=== PATIENT | male | born 1965 | race Caucasian/White ===

== ENCOUNTER 2021-03-02 20:13 | Emergency (ER) | payer MEDICAID, OTHER ==
[~2021-03-02] VITALS: Ht 175.3 cm; Wt 158.5 kg
[2021-03-02] MEDS ORDERED: LEVO50TA5 (20:36)
[2021-03-02] MEDS ORDERED: ASPI-1 (20:36)
[2021-03-02] MEDS ORDERED: ATOR80TA59 (20:36)
[2021-03-02] MEDS ORDERED: D3 S1CAP3 (20:36)
[2021-03-02] MEDS ORDERED: METO1TAB7 (20:36)
[2021-03-02] MEDS ORDERED: ALBU8.5H (20:36)
[2021-03-02] MEDS ORDERED: ENTR1TAB7 (20:36)
[2021-03-02] MEDS ORDERED: NITR0.4S14 (20:36)
[2021-03-02] MEDS ORDERED: CLOP75TA2 (20:36)
[2021-03-02] MEDS ORDERED: BUME2TAB3 (20:36)
[2021-03-02] MEDS ORDERED: CETI-24 (20:36)
[2021-03-02 20:46] LABS: BASO # 0.1 10^3/uL (0.0-0.2); BASO % 0.5 % (0.0-1.0); EOS # 0.4 10^3/uL (0.0-0.5); EOS % 4.1 % (0.0-3.0); HEMATOCRIT 40.5 % (42.0-52.0); HEMOGLOBIN 13.3 g/dl (13.5-17.5); LYMPH # 1.7 10^3/uL (1.5-5.0); MEAN CORPUSCULAR HEMOGLOBIN 29.6 pg (27.0-33.0); MEAN CORPUSCULAR HGB CONC 32.8 g/dl (32.0-36.5); MONO # 0.7 10^3/uL (0.0-0.8); MONO % 7.9 % (2.0-8.0); NEUTROPHILS # 6.4 10^3/uL (1.5-8.5); NEUTROPHILS % 69.3 % (36.0-66.0); PLATELET COUNT, AUTOMATED 240 10^3/uL (150-450); WHITE BLOOD COUNT 9.2 10^3/uL (4.0-10.0)
[2021-03-02 20:57] LABS: INR 0.94; PROTHROMBIN TIME 12.8 SECONDS (12.5-14.3)
[2021-03-02 20:58] LABS: PARTIAL THROMBOPLASTIN TIME 26.9 SECONDS (24.2-38.5)
[2021-03-02 21:15] LABS: BLOOD UREA NITROGEN 12 MG/DL (7-18); CALCIUM LEVEL 9.1 MG/DL (8.5-10.1); CARBON DIOXIDE LEVEL 32 MEQ/L (21-32); CHLORIDE LEVEL 97 MEQ/L (98-107); CREATININE FOR GFR 1.19 MG/DL (0.70-1.30); GLOMERULAR FILTRATION RATE > 60.0 (>56); GLUCOSE, FASTING 184 MG/DL (70-100); POTASSIUM SERUM 3.5 MEQ/L (3.5-5.1); SODIUM LEVEL 135 MEQ/L (136-145)
[2021-03-02] MEDS ORDERED: ISOVUE-370 76% 100ML VIAL As Ordered ONE (22:39)
--- NOTE | 2021-03-02 23:53 | REPVR ---
PROCEDURE INFORMATION: Exam: CTA Chest With Contrast Exam date and time: 03/02/2021 11:00 PM Age: 55 years old Clinical indication: Shortness of breath; Additional info: HX dvts, R/O left pe TECHNIQUE: Imaging protocol: Computed tomographic angiography of the chest with contrast. 3D rendering (Not supervised by radiologist): MIP and/or 3D reconstructed images were created by the technologist. Radiation optimization: All CT scans at this facility use at least one of these dose optimization techniques: automated exposure control; mA and/or kV adjustment per patient size (includes targeted exams where dose is matched to clinical indication); or iterative reconstruction. Contrast material: ISOVUE 370; Contrast volume: 75 ml; Contrast route: INTRAVENOUS (IV); COMPARISON: CR PORTABLE CHEST X-RAY 03/02/2021 8:56 PM FINDINGS: PULMONARY ARTERIES: Diameter of the main pulmonary trunk at 3.1 cm is borderline. Enhancement within the pulmonary arteries is preserved bilaterally through the distal segmental levels without acute appearing occlusive pulmonary emboli. Intensity and homogeneity of contrast bolus opacification within some branches beyond the distal segmental levels is suboptimal to evaluate for, or reliably exclude, smaller distal PE. HEART AND AORTA: There is mild cardiac enlargement with slight prominence of left-sided chambers. Pacemaker leads are seen. No pericardial effusion. Coronary arterial calcifications are noted. The ascending thoracic aorta demonstrates borderline fusiform aneurysmal dilation at 4.1 cm. No thoracic aortic dissection. Mild appearing atherosclerotic disease is seen within the thoracic aorta. Upper abdominal visceral arterial atherosclerosis is noted. MEDIASTINUM: Midline mediastinal structures are not displaced by mass effect. No mediastinal gas. The visualized thyroid gland is within normal limits. Prominent mediastinal fat. No mediastinal hematoma. Trace amount of fluid seen within the pericardial recesses. Multiple rounded pre-vascular lymph nodes are noted up to 9 mm in short axis. Multiple ovoid paratracheal lymph nodes are seen up to 10 mm in short axis. Multiple rounded AP window lymph nodes are seen, measuring up to 8 mm in short axis. Subcarinal and azygoesophageal recess lymph nodes up to 9 mm in short axis noted. Slightly prominent bilateral hilar lymph nodes are noted, measuring up to 7 mm in short axis. The significance of these lymph nodes is uncertain. Clinical correlation is advised. If the patient has a history of malignancy or if there is elevated suspicion due to risk factors, consider further characterization by PET. If there is no elevated risk, consider follow-up CT at 3-6 months to re-evaluate, sooner should symptoms worsen. No periesophageal inflammatory changes seen. No hiatal hernia. LUNGS: The lungs are symmetric in expansion. There is no consolidation, pneumothorax or pleural effusion. Mild bibasal and dependent subpleural reticular and ground-glass opacities noted likely secondary to atelectasis and/or parenchymal scarring. There is an 8 mm noncalcified ovoid nodule along the anteroinferior aspect of the left lower lobe with some adjacent atelectasis and/or parenchymal scarring (image 140, series 401). 6 mm nodule within the left lower lobe along the major fissure. 3 mm noncalcified subpleural nodule within the lingula. The significance of these nodules is uncertain. Neoplasia cannot be excluded as a cause. Clinical correlation with risk factors is advised. If the patient does not have a known history of malignancy, for patients at low risk (minimal or absent history of smoking and of other known risk factors), recommend CT Chest at 3-6 months, then consider CT Chest at 18-24 months. For patients at high risk (history of smoking or of other known risk factors), recommend CT Chest at 3-6 months, then CT Chest at 18-24 months. (Reference: Robert). No bronchiectasis or peribronchial thickening. UPPER ABDOMEN: No free air or free fluid within the visualized upper most abdomen. MSK AND BODY WALL: A left anterior chest wall pacemaker is noted. Mild degenerative changes of the spine and bony thorax. No acute fracture seen. IMPRESSION: No evidence of acute pulmonary embolus through the distal segmental levels. Cardiac enlargement. Indeterminate pulmonary nodules. Borderline lymph nodes are noted. The significance of these findings is uncertain. Clinical correlation is advised. Findings and recommendations discussed above in detail. Other incidental findings discussed above. Electronically signed by: Kiko Osborn On 03/02/2021 23:53:06 PM
[2021-03-03 00:48] VITALS: BP 157/79
--- NOTE | 2021-03-03 07:45 | ECGEPIP ---
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
--- NOTE | 2021-03-03 07:47 | ECGEPIP ---
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
--- NOTE | 2021-03-04 16:57 | REP ---
INDICATION: CHEST PAIN. COMPARISON: None. TECHNIQUE: Single portable AP view of the chest was performed. FINDINGS: There is cardiomegaly. There is mild vascular congestion. No infiltrate is seen. The mediastinal silhouette is unremarkable. Left pacemaker is noted. IMPRESSION: Cardiomegaly with mild vascular congestion. No focal infiltrate. A preliminary report was provided by [facility] at the time of the exam. <Electronically signed by Emre Gaviria > 03/04/21 [id number]
--- NOTE | 2021-03-05 10:37 | ED PDOC ---
Post-Departure Follow-Up cta chest faxed to dr barker for fu Toni Hardwick MD March 05, 2021 10:37
== END 2021-03-03 01:05 | disposition home or self-care (01) ==
LOC: M ED 20:13
DX: R91.8 Other nonspecific abnormal finding of lung field (principal); R59.0 Localized enlarged lymph nodes; R07.89 Other chest pain; Z95.0 Presence of cardiac pacemaker; I49.8 Other specified cardiac arrhythmias; I51.7 Cardiomegaly
CPT/HCPCS: 71045; 71275; 80048; 85025; 85610; 85730; 93005; 93041; 94760; 99285; Q9967

== ENCOUNTER → 2021-06-01 | Outpatient (CLI) | payer OTHER ==
[~2021-06-01] MED LIST: ALBU8.5H; ASPI-1; ATOR80TA59; BUME2TAB3; CETI-24; CLOP75TA2; D3 S1CAP3; ENTR1TAB7; LEVO50TA5; METO1TAB7; NITR0.4S14
--- NOTE | 2021-06-01 10:56 | REP ---
INDICATION: DYSNEA. COMPARISON: 03/02/2021 TECHNIQUE: Scans were obtained without contrast administration. FINDINGS: 8 mm nodule left lower lobe unchanged compared with the previous study. The lungs are otherwise clear. Postoperative changes after cardiac surgery. Permanent pacing leads in place. No hilar or mediastinal adenopathy. No pleural effusion. Adrenal glands not enlarged. IMPRESSION: Stable 8 mm nodule left lower lobe. <Electronically signed by Jeremy Medina > 06/01/21 [id number]
== END ==
LOC: M RAD 10:19
PROVIDERS: ATTEND Nurse Practitioner Family
DX: R91.1 Solitary pulmonary nodule (principal); R06.00 Dyspnea, unspecified